=== PATIENT | male | born 1965 | race Caucasian/White ===

== ENCOUNTER 2017-05-18 07:46 | Day surgery (SDC) | payer OTHER ==
[~2017-05-18] VITALS: Ht 190.5 cm; Wt 145.0 kg
[~2017-05-18 07:46] MED LIST: ESCITALOPRAM OX20 MG PO; GABAPENTIN400 MG PO; LIPITOR5 MG PO; LISINOPRIL10 MG PO; METOPROLOL SUCC50 MG PO
== END 2017-05-18 09:53 | disposition home or self-care (01) ==
LOC: PAIN 07:46 → SDC 08:30 → PAIN 09:53
DX: M51.16 Intervertebral disc disorders with radiculopathy, lumbar region (principal); M48.07 Spinal stenosis, lumbosacral region; I10 Essential (primary) hypertension; E66.01 Morbid (severe) obesity due to excess calories; Z68.41 Body mass index [BMI] 40.0-44.9, adult; Z80.3 Family history of malignant neoplasm of breast; Z80.1 Family history of malignant neoplasm of trachea, bronchus and lung
CPT/HCPCS: J1030; J2250; J3010

== ENCOUNTER 2017-07-27 09:56 | Day surgery (SDC) | payer OTHER ==
[~2017-07-27] VITALS: Ht 190.5 cm; Wt 147.9 kg
[~2017-07-27 09:56] MED LIST changes: +ADVIL200 MG PO; +LIPITOR40 MG PO
== END 2017-07-27 10:45 | disposition home or self-care (01) ==
LOC: PAIN 09:56 → SDC 10:15 → PAIN 10:45
PROC: 3E0S33Z Introduction of Anti-inflammatory into Epidural Space, Percutaneous Approach (ICD-10-PCS; principal; 2017-07-27)
DX: M54.16 Radiculopathy, lumbar region (principal); F41.9 Anxiety disorder, unspecified; M51.26 Other intervertebral disc displacement, lumbar region; M48.06 Spinal stenosis, lumbar region; F17.200 Nicotine dependence, unspecified, uncomplicated; I10 Essential (primary) hypertension; E66.01 Morbid (severe) obesity due to excess calories; Z68.43 Body mass index [BMI] 50.0-59.9, adult; F32.9 Major depressive disorder, single episode, unspecified
CPT/HCPCS: J1030; J2250; J3010